=== PATIENT | female | born 1990 | race Caucasian/White ===

== ENCOUNTER 2019-01-02 22:48 | Inpatient (IN) | payer BC ==
[2019-01-02] MEDS ORDERED: LIDOCAINE 1% 300 MG/30 ML SDV SC PRN (23:00)
[2019-01-02] MEDS ORDERED: IBUPROFEN 600 MG TAB PO PRN (23:00)
[2019-01-02] MEDS ORDERED: OXYTOCIN/RINGERS LACTATE 1,000 ML IV PRN (23:00)
[2019-01-02] MEDS ORDERED: OLIVE OIL 118 ML BTL MISC PRN (23:00)
[2019-01-02] MEDS ORDERED: AMMONIA AROMATIC 1 EACH AMP IH PRN (23:00)
[2019-01-02] MEDS ORDERED: TERBUTALINE SULFATE 1 MG/ML VIAL IV PRN (23:00)
[2019-01-02] MEDS ORDERED: LR 1,000 ML IV PRN (23:00)
[2019-01-02] MEDS ORDERED: MISOPROSTOL 200 MCG TAB PO PRN (23:00)
[2019-01-02] MEDS ORDERED: EPSOM SALT 454 GM TP PRN (23:00)
--- NOTE | 2019-01-02 23:15 | PDGENHP ---
History and Physical History and Physical: CARE: [facility], [place] [facility] HPI: Patient is a 28 yo G 4 P 2 @ 40 weeks that presents to L&D with complaints of SROM and strong uterine contractions. EDC: 01/02/19 which is based on LMP: 03/28/18 which is known and consistent with Ultrasound at 10 weeks. Her is complicated by: anemia Review of Systems: Constitutional: Denies any fever, chills, or fatigue HEENT: denies any visual changes, difficulty swallowing, hearing loss Cardiovascular: Denies any chest pain, palpitations, leg swelling Respiratory: denies any cough, wheezing, or shortness of breathe GI: Denies any nausea, vomiting, diarrhea, constipation : denies any dysuria, urgency, frequency, vaginal bleeding Musculoskeletal: denies any muscle or bone pain Skin: denies any rashes Neuro: denies any headache, seizures, lightheadedness, dizziness, or loss of consciousness Psychiatric: denies any depression, anxiety, or SI/HI thoughts HISTORY: Previous OB history: 2011 8# boy at 38 weeks (PP D&C for "something left inside"), 2013 8#8oz girl at 40 weeks Social history: Family history: denies Past medical history: uterine polyp Past surgical history: polyp removed Medications: PNV Allergies: NKDA LABS: Rh: A+ ABS: Neg Rubella: Immune HbsAg: NR HIV: NR VDRL: NR 1hr: 77 GC: Neg Chlamydia: Neg Pap: Normal 05/2018 GBS: neg BMI: (prepreg) 25 PHYSICAL EXAM: Constitutional: WN, A&Ox3 HEENT: normocephalic atraumatic, supple Heart: RRR, no murmur Chest: CTA-B Skin: warm, dry, intact Abdomen: Soft, nontender, gravid SVE: 5/90/-1 Extremities: neg edema, negative homans sign Neuro: grossly normal Psych: normal affect assessment: FHT baseline 135, +accels, no decels, moderate variability Contractions: toco q 2-3 cm Assessment: 1) 28 yo G 4 P 2 with IUP@ 40 2) spontaneous labor 3) GBS neg 4) Cat 1 FHR tracing Plan: 1) Admit to L&D 2) Anticipate
[2019-01-02 23:57] LABS: PLATELET COUNT 202 10^3/uL (150-400)
[2019-01-03] MEDS ORDERED: OLIVE OIL 118 ML BTL ONE (00:34)
[2019-01-03] MEDS ORDERED: LIDOCAINE 1% 300 MG/30 ML SDV ONE (00:34)
[2019-01-03] MEDS ORDERED: TERBUTALINE SULFATE 1 MG/ML VIAL ONE (00:35)
[2019-01-03] MEDS ORDERED: OXYTOCIN 10 UNIT/ML VIAL ONE (00:35)
[2019-01-03] MEDS ORDERED: MISOPROSTOL 200 MCG TAB ONE (00:35)
[2019-01-03] MEDS ORDERED: AMMONIA AROMATIC 1 EACH AMP IH ONE (00:35)
--- NOTE | 2019-01-03 01:30 | OBDEL ---
Info Type: Vaginal Presentation at Delivery: Vertex (R hand by face) L&D Analgesia/Anesthesia Type: None GBS+: No Intrapartum Medications: Discontinued Medications Generic Name Dose Route Start Last Admin Trade Name Lillian PRN Reason Stop Dose Admin Ibuprofen 600 mg 01/02/19 23:00 01/03/19 01:25 Motrin PO 600 mg ONCE PRN Administration post , pain - Care Provider Ink Grinder/AIR TRAFFIC SUPERVISOR: Carmencita Mobley (called at appoximately 7 min for evaluation of color and low O2 sat) - Hospital Course Intrapartum: 01/03/19 01:28 progressed rapidly to complete using hydrotherapy for comfort. Indications for Delivery: Spontaneous Labor Vaginal Delivery - Delivery Provider Delivery Physician/CNM: Su Domingo - Labor and Delivery Onset of Contractions Date: 01/02/19 Onset of Contractions Time: 20:15 Onset of Contractions Type: Spontaneous Rupture of Membranes Date: 01/02/19 Rupture of Membranes Time: 20:00 Rupture of Membranes Type: Spontaneous Amniotic Fluid Color: Clear Dilation Complete Date: 01/03/19 Dilation Complete Time: 00:47 Placenta Delivery Date: 01/03/19 Placenta Delivery Time: 01:02 Total Hours of Labor: 4 Laceration: 1st Degree Repair: 3-0, Vicryl Vaginal Sponge Count Correct: Yes Vaginal Needle Count Correct: Yes Vaginal Sweep Performed: Yes EBL: 250 Delivery Events: None [place] Data MARZENA: 01/02/19 Gestational Age: 40 week(s) and 1 day(s) Rodriguez Delivery Date: 01/03/19 Delivery Time: 00:53 Sex of : Female Score (1 Min): 8 Score (5 Min): 8 ICD10 Worksheet Patient Problems: Problems Problem Status Onset 40 weeks gestation of Acute (normal spontaneous vaginal delivery) Acute - ICD10 Problem Qualifiers (1) (normal spontaneous vaginal delivery)
[2019-01-03] MEDS: ACETAMINOPHEN 325 MG TAB PO PRN ×3 (03:33→17:50)
[2019-01-03] MEDS: IBUPROFEN 600 MG TAB PO PRN ×2 (08:28→17:53)
[2019-01-04] MEDS: IBUPROFEN 600 MG TAB PO PRN ×4 (00:57→21:00)
--- NOTE | 2019-01-04 13:28 | OBPP ---
Progress Note Assessment/Plan: Assessment: PP day 1 Plan: 01/04/19 13:26 Subjective/ Course: 01/04/19 13:26 Doing well today. No c/o. Baby transferred to NICU this AM due to low O2 levels with bedside pulse ox. Feeding well. Pain well controlled with PO meds. Plan d/ c home or to boarding tomorrow. Objective: 01/02/19 23:40 Patient ABO/Rh A POSITIVE 01/02/19 23:40 Temp Pulse Resp BP Pulse Ox 36.6 C 81 15 98/66 L 95 01/04/19 08:00 01/04/19 08:00 01/04/19 08:00 01/04/19 08:00 01/04/19 08:00 VSS Uterine Position/Fundal Height: At Umbilicus Uterine Tone: Firm
[2019-01-05] MEDS: IBUPROFEN 600 MG TAB PO PRN ×2 (02:54→09:02)
[2019-01-05 08:47] VITALS: BP 115/71
--- NOTE | 2019-01-05 11:26 | OBGCSDC ---
General Delivery Information - General Info : 4 Para: 3 Abortions: 1 Type: Vaginal L&D Analgesia/Anesthesia Type: None Admission Date: 01/02/19 Labs: Patient ABO/Rh A POSITIVE 01/02/19 23:40 Hct 37.2 % (38.0-47.0) L 01/02/19 23:40 - Hospital Course Intrapartum: 01/03/19 01:28 progressed rapidly to complete using hydrotherapy for comfort. : 01/04/19 13:26 Doing well today. No c/o. Baby transferred to NICU this AM due to low O2 levels with bedside pulse ox. Feeding well. Pain well controlled with PO meds. Plan d/ c home or to boarding tomorrow. 01/05/19 11:25 S) Pt doing well, reports min pain and bleeding. she is ambulating and voiding without difficulty. She is . She desires discharge home today. O) VSS, afebrile constitutional: WNWF, A&Ox3 HEENT: normocephalic, atraumatic, supple Heart: RRR, No murmur Chest: CTA-B Abdomen: Soft, nontender Uterus: Firm at U-2 Lochia: Minimal rubra Perineum: Intact, healing well Extremities: Trace edema, and negative Ricky's sign Neuro: Grossly normal A) 28 year-old P3 S/P PPD#2 P) Discharge home today Continue Pelvic rest x6wks Discussed danger signs (infection, preeclampsia, depression, heavy bleeding, etc) RTO in 2/4/6 weeks Vaginal - Delivery Provider Delivery Physician/CNM: Su Domingo - Diagnosis Labor: Spontaneous Rupture of Membranes Type: Spontaneous Amniotic Fluid Color: Clear Laceration: 1st Degree Repair: 3-0, Vicryl Delivery Events: None - Delivery EBL: 250 [place] Data MARZENA: 01/02/19 Gestational Age: 40 week(s) and 3 day(s) Rodriguez Delivery Date: 01/03/19 Delivery Time: 00:53 Sex of Infant: Female Weight (gm): 3906 g Score (1 Min): 8 Score (5 Min): 8 Discharge Information - Discharge Information Condition: Good Instruction/Follow Up: Two Weeks, Four Weeks, Six Weeks
== END 2019-01-05 12:05 | disposition home or self-care (01) | DRG 807 ==
LOC: FLD 22:48 → OBSVTOIN 23:01 → FOB 01-03 03:39
PROVIDERS: ADMIT Advanced Practice Midwife; ATTEND Advanced Practice Midwife
DX: O70.0 First degree perineal laceration during delivery (principal); Z37.0 Single live birth; Z3A.40 40 weeks gestation of pregnancy
CPT/HCPCS: J2590; J3105